=== PATIENT | male | born 2000 | race Hispanic/Latino ===

== ENCOUNTER 2022-05-29 08:25 | Emergency (ER) | payer OTHER ==
[2022-05-29] MEDS ORDERED: levETIRAcetam 500 MG/5 ML VIAL ONE (09:13)
[2022-05-29] MEDS ORDERED: Sodium Chloride 0.9% 1,000 ML ONE (09:13)
[2022-05-29 09:14] LABS: #Lymphocytes 1.3 thou/uL (1.20-3.40); #Neutrophils 1.6 thou/uL (1.40-6.50); %Basophils 0.7 % (0.0-1.0); %Eosinophils 0.1 % (0.0-10.0); %Monocytes 1.5 % (0.0-4.0); %Neutrophils 54.8 % (31.0-61.0); Hemoglobin 13.6 g/dL (14.0-18.0); Mean Corpuscular HGB CONC 31.7 g/dL (32.0-36.0); Mean Corpuscular Hemoglobin 27.4 pg (25.0-35.0); Mean Corpuscular Volume 86.3 fl (78.0-98.0); Mean Platelet Volume 5.9 fL (7.4-10.4); Platelet Count 222 10x3/uL (130-400); RBC Distribution Width 12.5 % (11.5-14.5); Red Blood Cell (RBC) Count 4.96 mill/uL (4.00-5.20); White Blood Cell (WBC) Count 2.9 10x3/uL (4.8-10.8)
[2022-05-29] MEDS ORDERED: Sodium Chloride 0.9% 100 ML ONE (09:17)
[2022-05-29 09:24] LABS: ALT (SGPT) 9 U/L (8-55); AST (SGOT) 12 U/L (5-34); Albumin 4.4 g/dL (3.5-5.0); Alkaline Phosphatase 67 U/L (50-130); Anion Gap 19 mmol/L (10-20); BUN (Urea Nitrogen) 11 mg/dL (8.9-20.6); Bilirubin, Total 0.3 mg/dL (0.2-1.2); CRP (Inflammatory) Less than 0.50 mg/dL (= or < 0.5); Calc. Creatinine Clearance 0 mL/min (70-130); Calcium 8.3 mg/dL (7.8-10.44); Carbon Dioxide 19 mmol/L (22-29); Chloride 107 mmol/L (98-107); Estimated GFR 104; Globulin 2.4 g/dL (2.4-3.5); Glucose 80 mg/dL (70-105); Lipase 36 U/L (8-78); Magnesium 2.3 mg/dL (1.7-2.2); Potassium 4.1 mmol/L (3.5-5.1); Protein, Total 6.8 g/dL (6.0-8.3); Sodium 141 mmol/L (136-145)
[2022-05-29 10:34] LABS: Bilirubin Negative (Negative); Blood, Urine Negative (Negative); Clarity Clear (Clear); Glucose, Urine (Dipstick) Negative (Negative); Ketone, Urine 15 mg/dL (Negative); Leukocyte Negative (Negative); Nitrite Negative (Negative); Protein, Urine (Dipstick) Negative (Neg-Trace); Specific Gravity, Urine 1.015 (1.005-1.030); Urobilinogen 0.2 mg/dL (Less than 2); pH, Urine 5.5 (5.0-9.0)
[2022-05-29 11:11] LABS: Amphetamine Not Detected (NotDetected); Barbiturates Screen Not Detected (NotDetected); Benzodiazepine Screen Not Detected (NotDetected); Cocaine Metabolite Screen Not Detected (NotDetected); Medtox Control Line Valid? VALID (VALID); Methadone Not Detected (NotDetected); Methamphetamine Not Detected (NotDetected); Opiate Screen Not Detected (NotDetected); Oxycodone Screen Not Detected (NotDetected); Phencyclidine (PCP) Not Detected (NotDetected); THC/Cannabinoid Screen Not Detected (NotDetected); Tricyclic Screen Not Detected (NotDetected)
== END 2022-05-29 10:44 ==
LOC: NAV ERS 08:25
DX: G40.909 Epilepsy, unspecified, not intractable, without status epilepticus (principal); D70.9 Neutropenia, unspecified; Z79.899 Other long term (current) drug therapy
CPT/HCPCS: 70450; 80053; 80306; 81003; 83605; 83690; 83735; 83880; 84443; 85025; 86140; 96365; J1953; J7050

== ENCOUNTER 2022-06-03 02:09 | Emergency (ER) | payer OTHER ==
[2022-06-03 02:46] LABS: #Basophils 0.1 thou/uL (0.0-0.2); #Eosinphils 0.2 thou/uL (0.0-0.7); #Lymphocytes 2.3 thou/uL (1.20-3.40); #Monocytes 0.5 thou/uL (0.11-0.59); #Neutrophils 3.3 thou/uL (1.40-6.50); %Basophils 0.9 % (0.0-1.0); %Eosinophils 3.6 % (0.0-10.0); %Lymphocytes 35.2 % (28.0-48.0); %Monocytes 8.4 % (0.0-4.0); %Neutrophils 51.9 % (31.0-61.0); Hemoglobin 13.5 g/dL (14.0-18.0); Mean Corpuscular HGB CONC 31.6 g/dL (32.0-36.0); Mean Corpuscular Hemoglobin 27.8 pg (25.0-35.0); Mean Platelet Volume 6.6 fL (7.4-10.4); Platelet Count 192 10x3/uL (130-400); RBC Distribution Width 12.6 % (11.5-14.5); Red Blood Cell (RBC) Count 4.86 mill/uL (4.00-5.20); White Blood Cell (WBC) Count 6.4 10x3/uL (4.8-10.8)
[2022-06-03 03:04] LABS: ALT (SGPT) 8 U/L (8-55); AST (SGOT) 11 U/L (5-34); Albumin 4.2 g/dL (3.5-5.0); Alkaline Phosphatase 66 U/L (50-130); Anion Gap 14 mmol/L (10-20); BUN (Urea Nitrogen) 12 mg/dL (8.9-20.6); Bilirubin, Total 0.2 mg/dL (0.2-1.2); Calc. Creatinine Clearance 0 mL/min (70-130); Carbon Dioxide 23 mmol/L (22-29); Chloride 108 mmol/L (98-107); Estimated GFR 130; Globulin 2.6 g/dL (2.4-3.5); Glucose 98 mg/dL (70-105); Potassium 3.7 mmol/L (3.5-5.1); Protein, Total 6.8 g/dL (6.0-8.3); Sodium 141 mmol/L (136-145)
[2022-06-03] MEDS ORDERED: Lorazepam 2 MG/ML VIAL ONE ×2 (03:34→03:38)
[2022-06-03] MEDS ORDERED: Fosphenytoin Sodium 500 mg/10 ml Vial ONE (03:40)
[2022-06-03] MEDS ORDERED: Sodium Chloride 0.9% 250 ML 250 ML ONE (03:45)
[2022-06-03 03:54] LABS: Acetaminophen Less than 10.0 mcg/mL (10.0-30.0); Alcohol Less than 10 mg/dL (Less than 10); CK (CPK) 82 U/L (30-200); Salicylate Less than 8.0 mg/dL (15.0-30.0)
[2022-06-03 04:00] LABS: Bilirubin Negative (Negative); Blood, Urine Negative (Negative); Clarity Clear (Clear); Glucose, Urine (Dipstick) Negative (Negative); Ketone, Urine Negative (Negative); Leukocyte Negative (Negative); Nitrite Negative (Negative); Protein, Urine (Dipstick) Negative (Neg-Trace); Urobilinogen 0.2 mg/dL (Less than 2); pH, Urine 7.5 (5.0-9.0)
[2022-06-03 04:10] LABS: Amphetamine Not Detected (NotDetected); Barbiturates Screen Detected (NotDetected); Benzodiazepine Screen Not Detected (NotDetected); Cocaine Metabolite Screen Not Detected (NotDetected); Methadone Not Detected (NotDetected); Methamphetamine Not Detected (NotDetected); Opiate Screen Not Detected (NotDetected); Oxycodone Screen Not Detected (NotDetected); Phencyclidine (PCP) Not Detected (NotDetected); THC/Cannabinoid Screen Not Detected (NotDetected); Tricyclic Screen Not Detected (NotDetected)
[2022-06-03 04:11] LABS: Medtox Control Line Valid? VALID (VALID)
== END 2022-06-03 05:55 ==
LOC: NAV ERS 02:09
DX: G40.909 Epilepsy, unspecified, not intractable, without status epilepticus (principal); Z79.899 Other long term (current) drug therapy
CPT/HCPCS: 36415; 70450; 80053; 80177; 80306; 80307; 81003; 82140; 82550; 85025; 96361; 96365; 96366; 96375; J2060; J7050; Q2009